=== PATIENT | male | born 1955 | race Caucasian/White ===

== ENCOUNTER 2018-09-11 07:21 | Day surgery (SDC) ==
[2018-09-11] MEDS: BETADINE OPTH PREP OP PRN ×2 (07:45→08:38)
[2018-09-11] MEDS: TETRACAINE 0.5% UNIT-DOSE OP PRN ×2 (07:45→08:38)
[2018-09-11] MEDS: CYCLOGYL 2% OPTH OP PRN ×3 (07:46→07:56)
[2018-09-11] MEDS ORDERED: LIDOCAINE 1% 20 ML MDV ID STA (07:55)
[2018-09-11] MEDS ORDERED: BRIMONIDINE TARTRATE 0.2% OPTH SOL OP PRN (07:55)
[2018-09-11] MEDS ORDERED: ZOFRAN 4 MG/2 ML IVP ONE (07:55)
[2018-09-11] MEDS ORDERED: BSS WITH EPINEPHRINE OP ONE (07:55)
[2018-09-11] MEDS ORDERED: DEX-MOXI-KETOR OPTH INJ 1/0.5/0.4 MG/ML IO ONE (07:55)
[2018-09-11] MEDS ORDERED: LIDOCAINE 1%/PHENYLEPHRINE 1.5% BSS (SURGERY) INTRAOCULA ONE (07:55)
[2018-09-11 08:01] VITALS: TEMP 98.2
[2018-09-11] MEDS ORDERED: VERSED ONE (08:45)
[2018-09-11] MEDS ORDERED: SUBLIMAZE ONE (08:45)
[2018-09-11] MEDS ORDERED: ZOFRAN 4 MG/2 ML ONE (08:45)
[2018-09-13 11:26] VITALS: BP 132/67
== END 2018-09-11 09:45 | disposition home or self-care (01) ==
LOC: SURG 07:21
PROVIDERS: ATTEND Ophthalmology
DX: H25.812 Combined forms of age-related cataract, left eye (principal)